=== PATIENT | male | born 1990 | race Caucasian/White ===

== ENCOUNTER 2019-06-22 22:15 | Emergency (ER) | payer MEDICAID, SELFPAY ==
[2019-06-22 22:16] VITALS: BP 123/81; PULSE 92; RESP 18; TEMP 36.7; O2SAT 99; BMI 34.4
--- NOTE | 2019-06-22 22:47 | ED.VIS.GEN ---
History of Present Illness Chief Complaint: Complaint Detail of Chief Complaint: Materia x1 week and right flank pain Informant: Patient Onset: Weeks Context: Sudden Onset Timing: Continuous, Waxes and wanes Quality: Flank pain with hematuria, urgency Location: Left Current Severity: Moderate Maximum Severity: Severe Worsened by: Nothing Relieved by: Nothing Associated Symptoms: Nausea and hematuria Narrative: Patient is a 29-year-old male with history of ureterolithiasis many years ago. He was seen approximately 6 years ago and diagnosed with orchitis. He denies fever, chills night sweats. He states he has had blood in his urine for proxy 1 week. Today he passed a clot. He is complaining of increased flank pain. Flank pain is colicky in nature. He denies dysuria. He does report urgency. He denies testicular pain. He denies vomiting or diarrhea. He denies trauma. He denies skin rash or lesions. Prior similar symptoms: Yes Recent Illness/Hospitalization: No - Past Medical History (1) Renal calculi Status: Acute (2) Orchitis Status: Acute Past Medical History - Allergies and Home Meds Allergies/Adverse Reactions: Allergies Penicillins Allergy (Verified 06/05/18 15:09) Anaphylaxis Primary Care Physician: Octavio Murillo MD [Primary Care Provider] - Prior records reviewed: Yes Surgical History: no surgical history Lives: Alone Smoking Status: Current every day smoker Alcohol: Rare Drugs: None Review of Systems General: Denies: Chills, Fever, Malaise, Subjective, Sweats, Weight loss, - ENT: Denies: Right ear pain, Rhinorrhea Cardiovascular: Denies: Chest pain, Palpitations Respiratory: Denies: Dyspnea, Cough, Dyspnea on exertion Gastrointestinal: Reports: Nausea. Denies: Abdominal pain, Vomiting, Diarrhea, Melena, Hematochezia Genitourinary: Reports: Hematuria. Denies: Dysuria, Frequency Musculoskeletal: Reports: Back pain. Denies: Myalgias, Arthralgias, Neck pain, Swelling, Extremity Pain Skin: Denies: Rash, Wounds Neurological: Denies: Headache, Weakness Hematologic: Denies: Easy bruising, Easy bleeding Allergy: Denies: Uticaria, Swelling of the mouth, Swelling of the tongue Physical Exam Vital Signs/Narrative: Vital Signs Temp Pulse Resp BP Pulse Ox 06/22/19 22:16 98.1 F 92 18 123/81 H 99 Inital Vital Signs reviewed: Yes General: Well nourished, Well developed, Acute Distress - Schrader is pacing the room. He has his hand on his left flank. Head: Normocephalic, Atraumatic Eyes: Perrl, EOMI ENT: Moist mucous membranes, No rhinorrhea Neck: Supple, Nontender, No lymphadenopathy, No JVD Cardiovascular: Regular rate, Regular rhythm, No murmurs, Normal S1, Normal S2 Respiratory: No distress, CTA bilaterally, Chest nontender Abdomen: Soft, Nontender, Nondistended, Normal bowel sounds Rectal: Deferred Back: Nontender, Normal Inspection Extremities: Nontender, No edema Skin: Normal color, No rash, No Trauma. Negative for: Cyanosis, Diaphoresis, Jaundice Neurological: Alert, Oriented x3, Cranial nerves II-XII grossly intact, Normal Strength, Normal Sensation, Normal Gait Psychological: Normal affect, Normal Mood Diagnostic/Tx/Re-eval Impressions Abdomen/Pelvis CT 06/23/19 00:04 IMPRESSION: There is a stone in the right kidney measures 15 mm without hydronephrosis. There is mild left hydronephrosis and hydroureter due to 4 mm stone in the distal end of left ureter at ureterovesical junction. Electronically Signed: Flor Evelyn, at 2:15 EDT Tel , Service support , 06/23/19 00:04 Abdomen/Pelvis without Cont [CT] Stat Laboratory Results 06/22/19 06/22/19 06/22/19 23:00 23:00 23:10 WBC 9.2 RBC 4.67 Hgb 15.1 Hct 43.3 MCV 92.7 MCH 32.3 H MCHC 34.9 RDW Std Deviation 41.3 RDW Coeff of [place] 12.1 Plt Count 167 MPV 9.8 Immature Gran % (Auto) 0.200 Neut % (Auto) 52.1 Lymph % (Auto) 35.9 [place] % (Auto) 6.4 Eos % (Auto) 4.9 Baso % (Auto) 0.5 Absolute Neuts (auto) 4.8 Absolute Lymphs (auto) 3.31 Nucleated RBC % 0 Sodium 140 Potassium 3.8 Chloride 106 Carbon Dioxide 28.0 Anion Gap 6 BUN 13 Creatinine 0.97 Estim Creat Clear Calc 107.73 Est GFR (MDRD) Af Amer 117 Est GFR (MDRD) Non-Af 97 BUN/Creatinine Ratio 13.4 Glucose 93 Calcium 8.8 Urine Color Yellow Urine Clarity Clear Urine pH 7.0 Ur Specific [place] 1.005 Urine Protein 30 H Urine Glucose (UA) Normal Urine Ketones Negative Urine Occult Blood 250 H Urine Nitrite Negative Urine Bilirubin Negative Urine Urobilinogen Normal Ur Leukocyte Esterase 25 H Urine RBC 5-10 SEEN Urine WBC 0-5 SEEN Ur Squamous Epith Cells 0 SEEN Urine Bacteria 0 SEEN Urine Mucus 0 SEEN - EKG Initial EKG Interpretation: Sinus Tachycardia - Sinus tachycardia with a ventricular rate of 121. KS interval is 118 ms. QS duration 84 ms. QT duration 300 ms. [place] is normal. The only abnormality is sinus tachycardia. Prior: Unchanged - Medical Decision Making Complaint of hematuria and pain need to evaluate for obstructing ureteral stone. Also in the differential is renal carcinoma, bleeding from renal cyst, hemorrhagic cystitis. IV was established. He received IV Toradol and Zofran for his nausea and pain. Blood work was obtained. After reviewing records and determined that he has not had a CAT scan in years. Will obtain CT to evaluate size and location. White count and differential unremarkable. There is no evidence of infection in the urine. Renal function is normal. She was informed of his results. He states he has minor pain and concern the pain is returning. He will be medicated with morphine prior to discharge. He was given a prescription for Percocet, nonsteroidal and follow-up with urology. ED Disposition - Plan for ED Patient: Disposition: Home or Assisted Living Diagnosis: Hydronephrosis concurrent with and due to calculi of kidney and ureter, Kidney stone on right side Instructions: KIDNEY STONE w/ Colic Prescriptions: Naproxen [Naprosyn] 500 mg PO BID #14 tab Transmission Status: Pending to [facility] Oxycodone HCl/Acetaminophen [Percocet 5/325] 1 tablet PO Q6H PRN PRN 5 Days #20 tablet PRN Reason: Pain Transmission Status: Sent to [facility] Referrals: Octavio Murillo MD [Primary Care Provider] - Aurelio Gonzales MD [STAFF PHYSICIAN] - 5-7 Days Additional Instructions: Your prescription was electronically transmitted to [facility].
[2019-06-22 23:07] LABS: Absolute Lymphocyte Count 3.31 X10^3/uL (0.83-4.51); Absolute Neutrophil Count 4.8 X10^3/uL (2.0-7.7); Basophil# 0.05 X10^3/uL; Basophil% 0.5 % (0-1); Eosinophil# 0.45 X10^3/uL; Eosinophils% 4.9 % (0-5); Hematocrit 43.3 % (40-54); Hemoglobin 15.1 g/dL (13.0-16.5); Lymphocyte # 3.31 X10^3/ul (4.0); Lymphocyte % 35.9 % (19-41); Mean Corp Hgb Conc 34.9 g/dL (32-36); Mean Corpuscular Hgb 32.3 pg (27.0-32.0); Mean Corpuscular Volume 92.7 fL (80-94); Mean Platelet Vol. 9.8 fl (6.2-12.0); Monocyte# 0.59 X10^3/uL; Monocyte% 6.4 % (0-10); NRBC Flagged by Analyzer 0 % (0-5); Neutrophil % 52.1 % (47-70); Platelet Count 167 K/mm3 (150-450); RBC Distribution Width CV 12.1 % (11.6-14.6); RBC Distribution Width SD 41.3 fl (35.1-43.9); Red Blood Count 4.67 M/mm3 (4.6-6.2); White Blood Count 9.2 K/mm3 (4.4-11.0)
[2019-06-22] MEDS: Ondansetron 4 MG/2 ML Vial IV (23:13)
[2019-06-22] MEDS: 0.9% Normal Saline 1,000 ML 250 ML IV (23:13)
[2019-06-22] MEDS: Ketorolac 30 MG/ML Syringe 15 MG IV (23:13)
[2019-06-22 23:16] LABS: Bacteria 0 SEEN /hpf (None Seen); Mucous, Urine 0 SEEN /hpf (<or=2+); Squamous Epithelial Cells - UA 0 SEEN /hpf (0-5)
[2019-06-22 23:18] LABS: Color, Urine Yellow (Yellow); Glucose, Dipstick Normal (Normal); Ketone-Dipstick Negative (Negative); Leukocyte Esterase-Dipstick 25 /ul (Negative); Nitrite-Dipstick Negative (Negative); Occult Blood-Urine 250 /ul (Negative); Protein-Dipstick 30 mg/dl (Negative); Specific Gravity, Urine 1.005 (1.002-1.030); Urine Bilirubin Dipstick Negative (Negative); Urine Clarity Clear (Clear); Urine Urobilinogen Normal (Normal)
[2019-06-22 23:20] LABS: Anion Gap 6 (5-15); BUN 13 mg/dL (7-18); BUN/Creat Ratio 13.4 RATIO (10-20); Calcium,Total 8.8 mg/dL (8.5-10.1); Chloride 106 mmol/L (98-107); Creatinine, Serum 0.97 mg/dL (0.70-1.30); EST Glomerular Filtration Rate 97 mL/min (>60); Est Glom Filt Rate - Afr Amer 117 mL/min (>60); Estimated Creatinine Clearance 107.73 ml/min; Glucose 93 mg/dL (74-106); Potassium 3.8 mmol/L (3.5-5.1); Sodium Level 140 mmol/L (136-145)
[2019-06-22 23:23] LABS: White Blood Cells 0-5 SEEN /hpf (0-5)
[2019-06-22 23:24] LABS: Red Blood Cells-Urine 5-10 SEEN /hpf (0-5)
--- NOTE | 2019-06-23 00:04 | CT_ITS ---
STUDY: CT ABDOMEN AND PELVIS WITHOUT CONTRAST REASON FOR EXAM: Male, 29 years old. Left flank pain RADIATION DOSAGE (If Supplied By Facility): CTDIvol = ( 16.72 ) mGy, DLP = ( 889.51 ) mGycm TECHNIQUE: Transaxial images were obtained from the dome of the diaphragm to the symphysis pubis without oral contrast, and without intravenous contrast. Sagittal and coronal images were reconstructed. Individualized dose optimization techniques were used for this CT. COMPARISON: None. FINDINGS: The visualized lung bases are unremarkable. The visualized portions of the heart are within normal limits. Normal liver. Normal gallbladder and extrahepatic biliary system. Normal spleen. Normal pancreas. Normal bilateral adrenal glands. There is a stone in the right kidney measures 15 mm without hydronephrosis. There is mild left hydronephrosis and hydroureter due to 4 mm stone in the distal end of left ureter at ureterovesical junction. Normal visualized stomach. Normal small intestine. Normal colon. The appendix is visualized and appears normal. Normal abdominal aorta. Normal inferior vena cava. Normal retroperitoneum. Normal urinary bladder. Normal abdominal wall. Normal osseous structures. CT/Abdomen/Pelvis without Cont IMPRESSION: There is a stone in the right kidney measures 15 mm without hydronephrosis. There is mild left hydronephrosis and hydroureter due to 4 mm stone in the distal end of left ureter at ureterovesical junction. Electronically Signed: Basia Rivas, at 2:15 EDT Tel , Service support ,
[2019-06-23] MEDS: morphine 8 MG/ML Syringe 6 MG IV (02:32)
[2019-06-23 02:50] VITALS: BP 124/82; PULSE 63; RESP 14; O2SAT 98
== END 2019-06-23 02:52 | disposition home or self-care (01) ==
PROVIDERS: Emergency Provider Emergency Medicine; Family Provider Family Medicine; PCP Family Medicine
DX: N13.2 Hydronephrosis with renal and ureteral calculous obstruction (principal); Z87.442 Personal history of urinary calculi; F17.200 Nicotine dependence, unspecified, uncomplicated
CPT/HCPCS: 74176; 80048; 81001; 85025; 96361; 96374; 96375; 99283; J7030; A4216; J2405

== ENCOUNTER 2019-11-14 08:46 | Emergency (ER) | payer SELFPAY ==
[2019-11-14 08:48] VITALS: BP 130/85; PULSE 68; RESP 17; TEMP 36.8; O2SAT 98; BMI 34.6
--- NOTE | 2019-11-14 08:59 | ED.DCSUM_ITS ---
History of Present Illness Chief Complaint: Nausea/Vomiting Informant: Patient Onset: Today Narrative: Patient states that for the past 4 to 5 days he has had diarrhea. He states there is a couple days were gotten better but has returned. He describes it as yellow and green. He also states he has been having nosebleeds on the left. 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 He notes that he has pain in the right ear decreased hearing and feels off balance with walking. He reports that during the night he had 5-6 symptoms of vomiting which she describes as dark blood. He notes abdominal cramping. No history of gastric ulcers. No history of GERD. Past Medical History - Allergies and Home Meds Allergies/Adverse Reactions: Allergies Penicillins Allergy (Verified 11/14/19 08:47) Anaphylaxis Primary Care Physician: Octavio Murillo MD [Primary Care Provider] - Surgical History: no surgical history Smoking Status: Current every day smoker Review of Systems General: Denies: Chills, Fever, Sweats Eyes: Denies: Visual changes - bilaterally, Diplopia ENT: Reports: Right ear pain, - - Left epistaxis. Denies: Rhinorrhea, Sore throat Cardiovascular: Denies: Chest pain, Palpitations Respiratory: Reports: Cough. Denies: Dyspnea, Dyspnea on exertion Gastrointestinal: Reports: Abdominal pain, Nausea, Vomiting, Diarrhea. Denies: Melena, Hematochezia Genitourinary: Denies: Dysuria, Hematuria, Frequency Musculoskeletal: Denies: Back pain, Extremity Pain Skin: Denies: Rash, Wounds Neurological: Denies: Headache, Weakness, Numbness Physical Exam Vital Signs/Narrative: Vital Signs Temp Pulse Resp BP Pulse Ox 11/14/19 08:48 98.3 F 68 17 130/85 H 98 Inital Vital Signs reviewed: Yes General: Well nourished, Well developed, No Acute Distress Head: Normocephalic, Atraumatic Eyes: Perrl, EOMI ENT: Moist mucous membranes, No rhinorrhea, - - Left anterior nasal plexus demonstrates significant dry skin recent bleeding. Right tympanic membrane shows fluid behind it loss of visualization of the bones and erythema. Neck: Supple, Nontender Cardiovascular: Regular rate, Regular rhythm, No murmurs Respiratory: No distress, CTA bilaterally, Chest nontender Abdomen: Soft, Nontender, Nondistended, Normal bowel sounds Back: Nontender, Normal Inspection Extremities: Nontender, No edema Skin: Normal color, No rash Neurological: Alert, Oriented x3, Cranial nerves II-XII grossly intact, Normal Strength, Normal Sensation Psychological: Normal affect, Normal Mood Diagnostic/Tx/Re-eval - Medical Decision Making White count was 12 hemoglobin is 15. Liver enzymes and lipase normal. I think a reasonable approach to this patient is to (1) use amoxicillin for the otitis media. (2) topical ointment for hydration and healing of the nose. And(3) twice daily Pepcid for presumed gastritis/gastric ulcer. However I think it is more likely the patient had a nosebleed and swallowed the blood during his sleep resulting in vomiting. Patient is comfortable with this plan will return if worsening or concerns. He understands signs and symptoms that would require him to come back to the ED. ED Disposition - Plan for ED Patient: Disposition: Home or Assisted Living Diagnosis: Otitis media, Anterior epistaxis, Gastroenteritis Instructions: OTITIS MEDIA, Abx Tx (Adult), EPISTAXIS (Adult) Prescriptions: Cefdinir 300 mg PO BID #20 cap Transmission Status: Pending to [facility] Famotidine [Pepcid] 20 mg PO BID #28 tab Transmission Status: Pending to [facility] Referrals: Octavio Murillo MD [Primary Care Provider] - 1-2 Weeks Additional Instructions: Use Vaseline or topical antibiotic such as Neosporin on the nose hydrate/heal the nose. Humidify the air in the room you sleep in
[2019-11-14 09:32] LABS: Absolute Lymphocyte Count 1.96 X10^3/uL (0.83-4.51); Absolute Neutrophil Count 9.9 X10^3/uL (2.0-7.7); Basophil# 0.05 X10^3/uL; Basophil% 0.4 % (0-1); Eosinophil# 0.19 X10^3/uL; Eosinophils% 1.5 % (0-5); Hematocrit 44.2 % (40-54); Hemoglobin 15.7 g/dL (13.0-16.5); Lymphocyte # 1.96 X10^3/ul (4.0); Lymphocyte % 15.5 % (19-41); Mean Corp Hgb Conc 35.5 g/dL (32-36); Mean Corpuscular Hgb 33.1 pg (27.0-32.0); Mean Corpuscular Volume 93.2 fL (80-94); Mean Platelet Vol. 10.4 fl (6.2-12.0); Monocyte# 0.55 X10^3/uL; Monocyte% 4.4 % (0-10); NRBC Flagged by Analyzer 0 % (0-5); Neutrophil # 9.85 X10^3/uL (2.7-7.7); Neutrophil % 77.9 % (47-70); Platelet Count 179 K/mm3 (150-450); RBC Distribution Width CV 12.9 % (11.6-14.6); RBC Distribution Width SD 44.3 fl (35.1-43.9); Red Blood Count 4.74 M/mm3 (4.6-6.2); White Blood Count 12.6 K/mm3 (4.4-11.0)
[2019-11-14] MEDS: 0.9% Normal Saline 1,000 ML 1000 ML IV (09:39)
[2019-11-14 10:24] LABS: ALB/GLOB Ratio 1.2 RATIO (0.9-2.4); AST(SGOT) 16 U/L (15-37); Alanine Aminotransfer ALT/SGPT 16 U/L (16-61); Albumin, Serum 3.6 g/dL (3.2-5.0); Alkaline Phosphatase 86 U/L (45-117); Anion Gap 5 (5-15); BUN 9 mg/dL (7-18); BUN/Creat Ratio 11.9 RATIO (10-20); Chloride 113 mmol/L (98-107); Creatinine, Serum 0.76 mg/dL (0.70-1.30); EST Glomerular Filtration Rate 128 mL/min (>60); Est Glom Filt Rate - Afr Amer 154 mL/min (>60); Globulin 3.1 g/dL (2.2-4.2); Glucose 93 mg/dL (74-106); Lipase 111 U/L (73-393); Potassium 3.6 mmol/L (3.5-5.1); Protein, Total 6.7 g/dL (6.4-8.2); Sodium Level 142 mmol/L (136-145)
[2019-11-14 11:09] VITALS: BP 133/94; PULSE 70; RESP 18; O2SAT 99
== END 2019-11-14 11:09 | disposition home or self-care (01) ==
PROVIDERS: Emergency Provider Emergency Medicine; PCP Family Medicine
DX: K52.9 Noninfective gastroenteritis and colitis, unspecified (principal); H66.91 Otitis media, unspecified, right ear; R04.0 Epistaxis; Z88.0 Allergy status to penicillin; F17.200 Nicotine dependence, unspecified, uncomplicated
CPT/HCPCS: 36415; 80053; 83690; 85025; 99285; A4216

== ENCOUNTER 2021-04-10 12:08 | Emergency (ER) | payer SELFPAY ==
[2021-04-10 12:09] VITALS: BP 120/81; PULSE 77; RESP 16; TEMP 36.6; O2SAT 98; BMI 31.6
--- NOTE | 2021-04-10 12:21 | CT_ITS ---
STUDY: CT ABDOMEN AND PELVIS WITHOUT CONTRAST REASON FOR EXAM: Male, 31 years old. Flank pain and fever RADIATION DOSAGE (If Supplied By Facility): CTDIvol = ( 20.71 ) mGy, DLP = ( 1061.79 ) mGycm TECHNIQUE: Transaxial images were obtained from the dome of the diaphragm to the symphysis pubis without oral contrast, and without intravenous contrast. Sagittal and coronal images were reconstructed. Individualized dose optimization techniques were used for this CT. COMPARISON: 2018 FINDINGS: The visualized lung bases are unremarkable. The visualized portions of the heart are within normal limits. Normal liver. Normal gallbladder and extrahepatic biliary system. Normal spleen. Normal pancreas. Normal bilateral adrenal glands. No obstructive uropathy, there is a stable 1.65 cm nonobstructing stone in the mid right kidney Normal visualized stomach. Multiple nondistended fluid-filled small bowel loops are noted consistent with ileus. Normal colon. The appendix is visualized and appears normal. Appendix best seen on coronal recon images 55 through 60 Normal abdominal aorta. Normal inferior vena cava. Scattered subcentimeter mesenteric and retroperitoneal lymph nodes Normal urinary bladder. Normal abdominal wall. Normal osseous structures. CT/Abdomen/Pelvis without Cont IMPRESSION: No obstructive uropathy, stable 1.65 cm nonobstructing right renal stone Small bowel ileus No free intraperitoneal fluid, air, or suspicious adenopathy, there are scattered subcentimeter mesenteric and retroperitoneal lymph nodes suggesting mesenteric lymphadenitis Normal appendix visualized Electronically Signed: Pradip Burns MD at 13:11 EDT , Service support ,
--- NOTE | 2021-04-10 12:21 | EX.ED.DYSGE1 ---
HPI History of Present Illness Chief Complaint: Flank Pain Informant: patient Narrative Narrative: 31-year-old male presents to the emergency room with right flank pain. He has a history of kidney stones. Symptoms began yesterday waxed and waned but got significantly worse today. He notes some nausea and vomiting. He states this feels like a kidney stone. He is seeing Dr. Gonzales in the past. [facility] Medical History Asthma Back pain Diarrhea Difficulty balancing Limb weakness Migraines SOB (shortness of breath) Home Medications ondansetron 4 mg PO Q6H PRN PRN #15 tab 04/10/21 [Rx Last Taken Unknown] Allergy/AdvReac Type Severity Reaction Status Date / Time Penicillins Allergy Anaphylaxis Verified 04/10/21 12:10 Family History (Updated 06/05/18 @ 15:12 by Zoie Canela) Other CVA (cerebral vascular accident) Social History Smoking Status: Current every day smoker tobacco type: cigarettes alcohol intake: never ROS ROS ED Constitutional Constitutional ED: Denies chills or weight loss Eyes Eyes: Denies change in vision or diplopia ENT ENT ED: Denies ear pain, rhinorrhea or sore throat Cardiovascular Cardiovascular: Denies chest pain, orthopnea, palpitations or racing heartbeat Respiratory/Chest Respiratory/Chest: Denies cough, dyspnea or orthopnea Gastrointestinal Gastrointestinal: Reports abdominal pain, diarrhea, nausea and vomiting Genitourinary Genitourinary ED: Reports urinary frequency and other Details: Right flank pain ; Denies dysuria or hematuria Musculoskeletal Musculoskeletal: Denies arthralgias or myalgias Integumentary Denies abscess or rash Neurologic Neurologic: Denies headache(s) or weakness Psychiatric Psychiatric: Denies anxiety, depression, suicidal ideation or suicidal thoughts Endocrine Endocrinology: Denies polydipsia, polyphagia or polyuria Allergic/Immunologic Allergic/Immunologic ED: Denies mouth swelling, tongue swelling or urticaria EXAM Physical Exam Const Vital Signs: 04/10/21 12:09 Temperature 98 F Temperature Source Temporal Pulse Rate 77 Respiratory Rate 16 Blood Pressure 120/81 H Blood Pressure Mean 94 Pulse Ox 98 Oxygen Delivery Method Room Air Positive well nourished and well developed General Appearance ED: well developed HEENT Reports normocephalic, head/scalp atraumatic and moist mucous membranes Eyes PERRL and EOMs intact bilaterally Neck no lymphadenopathy, supple and no JVD Resp normal respiratory effort and clear to auscultation bilaterally Cardio regular rate, regular rhythm and no murmurs GI normal to inspection, nondistended, normoactive bowel sounds and non-tender Palpation: soft Back/Spine no CVA tenderness and normal ROM Extremity normal to inspection General Extremety ED: Negative for edema General Extremity: Negative for edema Neuro oriented x3 and CN's II-XII intact bilaterally Sensorium / Orientation: alert Motor Exam: strength 5/5 throughout Psych mental status grossly normal Mood & Affect: Negative for depressed or tearful Skin no rashes or lesions noted and no wounds MDM MDM MDM Narrative Medical decision making narrative: Patient received IV fluids Toradol morphine and Zofran. Basic blood work was normal. Urinalysis normal. CT of the abdomen pelvis demonstrates no ureteral stone. There is a large stone in the right kidney. He does have some dilated small bowel with air-fluid levels consistent more with an ileus. This would also explain his diarrhea and vomiting. Patient will have nausea medicine written for him. I recommend follow-up with primary care return if worsening Lab Data Attestation: I reviewed the patient's lab results. Labs: Laboratory Results - last 24 hr 04/10/21 04/10/21 04/10/21 12:30 12:30 12:40 WBC 8.1 RBC 4.75 Hgb 15.8 Hct 45.0 MCV 94.7 H MCH 33.3 H MCHC 35.1 RDW Std Deviation 43.3 RDW Coeff of [place] 12.3 Plt Count 183 MPV 10.5 Immature Gran % (Auto) 0.400 Neut % (Auto) 63.2 Lymph % (Auto) 26.2 [place] % (Auto) 6.9 Eos % (Auto) 2.6 Baso % (Auto) 0.7 Absolute Neuts (auto) 5.1 Absolute Lymphs (auto) 2.12 Nucleated RBC % 0 Sodium 139 Potassium 4.0 Chloride 111 H Carbon Dioxide 25.0 Anion Gap 3 L BUN 10 Creatinine 0.79 Estim Creat Clear Calc 129.87 Est GFR (MDRD) Af Amer 146 Est GFR (MDRD) Non-Af 121 BUN/Creatinine Ratio 12.6 Glucose 91 Calcium 8.4 L Urine Color Yellow Urine Clarity Sl. Cloudy Urine pH 7.0 Ur Specific [place] 1.010 Urine Protein 15 H Urine Glucose (UA) Normal Urine Ketones Negative Urine Occult Blood 10 H Urine Nitrite Negative Urine Bilirubin Negative Urine Urobilinogen 1 H Ur Leukocyte Esterase 25 H Urine RBC 0 SEEN Urine WBC 0 SEEN Ur Squamous Epith Cells 0 SEEN Urine Bacteria 0 SEEN Urine Mucus 0 SEEN Radiography Diagnostic Testing: Radiology Impression Abdomen/Pelvis CT 04/10/21 12:21 IMPRESSION: No obstructive uropathy, stable 1.65 cm nonobstructing right renal stone Small bowel ileus No free intraperitoneal fluid, air, or suspicious adenopathy, there are scattered subcentimeter mesenteric and retroperitoneal lymph nodes suggesting mesenteric lymphadenitis Normal appendix visualized Electronically Signed: Pradip Burns MD at 13:11 EDT , Service support , Discharge Plan Triage Chief Complaint: Flank Pain ED Provider: Bob Da Silva Dx/Rx/DC Orders Clinical Impression: Abdominal pain, acute, Ileus Instructions: Ileus Prescriptions: New ondansetron [ondansetron] 4 MG tablet 4 mg PO Q6H PRN PRN (Reason: Nausea) Qty: 15 RF: 0 Primary Care Provider: Octavio Murillo Referrals: Octavio Murillo MD [Primary Care Provider] - 3-5 Days if not improving Disposition Disposition: Home, Self Care
[2021-04-10] MEDS: Ketorolac 30 MG/ML Syringe IV (12:35)
[2021-04-10] MEDS: Ondansetron 4 MG/2 ML Vial IV (12:35)
[2021-04-10] MEDS: Morphine 4 MG/ML Syringe IV (12:35)
[2021-04-10] MEDS: 0.9% Normal Saline 1,000 ML 200 ML IV (12:35)
[2021-04-10 12:36] LABS: Absolute Lymphocyte Count 2.12 X10^3/uL (0.83-4.51); Absolute Neutrophil Count 5.1 X10^3/uL (2.0-7.7); Basophil# 0.06 X10^3/uL; Basophil% 0.7 % (0-1); Eosinophil# 0.21 X10^3/uL; Eosinophils% 2.6 % (0-5); Hemoglobin 15.8 g/dL (13.0-16.5); Lymphocyte # 2.12 X10^3/ul (0.83-4.51); Lymphocyte % 26.2 % (19-41); Mean Corp Hgb Conc 35.1 g/dL (32-36); Mean Corpuscular Hgb 33.3 pg (27.0-32.0); Mean Corpuscular Volume 94.7 fL (80-94); Mean Platelet Vol. 10.5 fl (6.2-12.0); Monocyte# 0.56 X10^3/uL; Monocyte% 6.9 % (0-10); NRBC Flagged by Analyzer 0 % (0-5); Neutrophil # 5.11 X10^3/uL (2.7-7.7); Neutrophil % 63.2 % (47-70); Platelet Count 183 K/mm3 (150-450); RBC Distribution Width CV 12.3 % (11.6-14.6); RBC Distribution Width SD 43.3 fl (35.1-43.9); Red Blood Count 4.75 M/mm3 (4.6-6.2); White Blood Count 8.1 K/mm3 (4.4-11.0)
[2021-04-10 12:49] LABS: Anion Gap 3 (5-15); BUN 10 mg/dL (7-18); BUN/Creat Ratio 12.6 RATIO (10-20); Calcium,Total 8.4 mg/dL (8.5-10.1); Chloride 111 mmol/L (98-107); Creatinine, Serum 0.79 mg/dL (0.70-1.30); EST Glomerular Filtration Rate 121 mL/min (>60); Est Glom Filt Rate - Afr Amer 146 mL/min (>60); Estimated Creatinine Clearance 129.87 ml/min; Glucose 91 mg/dL (74-106); Sodium Level 139 mmol/L (136-145)
[2021-04-10 12:50] LABS: Bacteria 0 SEEN /hpf (None Seen); Mucous, Urine 0 SEEN /hpf (<or=2+); Red Blood Cells-Urine 0 SEEN /hpf (0-5); Squamous Epithelial Cells - UA 0 SEEN /hpf (0-5); White Blood Cells 0 SEEN /hpf (0-5)
[2021-04-10 12:52] LABS: Color, Urine Yellow (Yellow); Glucose, Dipstick Normal (Normal); Ketone-Dipstick Negative (Negative); Leukocyte Esterase-Dipstick 25 /ul (Negative); Nitrite-Dipstick Negative (Negative); Occult Blood-Urine 10 /ul (Negative); Protein-Dipstick 15 mg/dl (Negative); Urine Bilirubin Dipstick Negative (Negative); Urine Clarity Sl. Cloudy (Clear); Urine Urobilinogen 1 mg/dl (Normal)
[2021-04-10 14:04] VITALS: BP 131/76; PULSE 81; RESP 16; O2SAT 98
== END 2021-04-10 14:07 | disposition home or self-care (01) ==
PROVIDERS: Emergency Provider Emergency Medicine; PCP Family Medicine
DX: K56.7 Ileus, unspecified (principal); N20.0 Calculus of kidney; J45.909 Unspecified asthma, uncomplicated; F17.210 Nicotine dependence, cigarettes, uncomplicated; Z87.442 Personal history of urinary calculi
CPT/HCPCS: 74176; 80048; 81001; 85025; 96361; 96374; 96375; 99283; J7030; A4216; J2405

== ENCOUNTER 2022-08-18 04:23 | Emergency (ER) | payer SELFPAY ==
[2022-08-18 04:24] VITALS: BP 142/76; PULSE 98; RESP 16; TEMP 37.5; O2SAT 100; BMI 33.4
--- NOTE | 2022-08-18 04:44 | RAD_ITS ---
EXAM: XR CHEST, 2 VIEWS CLINICAL INDICATION: cough TECHNIQUE: Frontal and lateral views of the chest. This report was created using [employer] report generation technology. COMPARISON: None. FINDINGS: LUNGS AND PLEURAL SPACES: Unremarkable. No consolidation or edema. No pneumothorax. No effusion. HEART: Unremarkable. Cardiac silhouette not enlarged. MEDIASTINUM: Central airways and mediastinal contour are unremarkable. BONES/JOINTS: Unremarkable. SOFT TISSUES: Unremarkable. RAD/Chest PA and Lateral IMPRESSION: No radiographic evidence of acute cardiopulmonary disease. Electronically Signed: Jarred Jang MD at 5:56 EST ,
--- NOTE | 2022-08-18 04:50 | EDS_ITS ---
HPI History of Present Illness Chief Complaint: Fever Narrative Narrative: Patient is a 32-year-old male who states he has been multiple sick children in his home. He states that there is been influenza and strep present. He states in the last day he developed a fever up to 102 at home with some congestion drainage and cough. He also reports that he has had muscle aches sore throat and some right-sided back pain. He states he is unsure if he has strep or the flu or some other type of illness and secondary to his symptoms and persistent fever comes in for evaluation [facility] Medical History Asthma Back pain Diarrhea Difficulty balancing Limb weakness Migraines SOB (shortness of breath) Home Medications albuterol sulfate 90 mcg/actuation aerosol inhaler (Ventolin HFA) 1 - 2 puff inhalation Q4H PRN PRN Wheezing #1 device 08/18/22 [Rx Last Taken Unknown] Allergy/AdvReac Type Severity Reaction Status Date / Time Penicillins Allergy Anaphylaxis Verified 08/18/22 04:28 Family History (Updated 06/05/18 @ 15:12 by Zoie Canela) Other CVA (cerebral vascular accident) Social History Smoking Status: Current every day smoker tobacco type: cigarettes alcohol intake: never ROS ROS ED Constitutional Constitutional ED: Reports fever(s); Denies chills ENT ENT ED: Reports ear pain, rhinorrhea and sore throat Cardiovascular Cardiovascular: Denies chest pain Respiratory/Chest Respiratory/Chest: Reports cough; Denies dyspnea Gastrointestinal Gastrointestinal: Denies abdominal pain, diarrhea, nausea or vomiting Genitourinary Genitourinary ED: Denies dysuria Musculoskeletal Musculoskeletal: Reports myalgias Integumentary Denies rash Neurologic Neurologic: Reports headache(s) Hematologic/Lymphatic Hematologic/Lymphatic: Denies easy bleeding or easy bruising EXAM Physical Exam Const Vital Signs: 08/18/22 04:24 08/18/22 04:27 Temperature 99.5 F H Temperature Source Oral Pulse Rate 98 Respiratory Rate 16 Respiratory Effort Normal Non-Labored Respiratory Pattern Normal Blood Pressure 142/76 H Blood Pressure Mean 98 Pulse Ox 100 Oxygen Delivery Method Room Air Positive well nourished and well developed General Appearance ED: well developed HEENT Reports moist mucous membranes HEENT Narrative: Bilateral TMs are retracted without secondary changes to suggest infection. Nasal mucosa is hyperemic and boggy with enlarged inferior nasal turbinates. There is cobblestoning the posterior pharynx consistent with sinus drainage without airway edema or compromise. Eyes PERRL and EOMs intact bilaterally Neck supple Neck Narrative: No meningeal signs noted Positive anterior cervical lymphadenopathy present Resp normal respiratory effort Resp Narrative: There is faint rhonchi noted in bilateral bases without nasal flaring retractions tachypnea or accessory muscle use Cardio regular rate and regular rhythm GI normal to inspection, nondistended, normoactive bowel sounds, non-tender, non- distended and no masses Auscultation: normoactive bowel sounds Palpation: soft Back/Spine no CVA tenderness Extremity normal to inspection Neuro oriented x3 and CN's II-XII intact bilaterally Sensorium / Orientation: alert Psych mental status grossly normal Skin no rashes or lesions noted MDM MDM MDM Narrative Medical decision making narrative: Patient presented to the ER with low-grade temperature but did take Tylenol prior to arrival and reported fever up to 102 at home. Otherwise he is not hypoxic or tachypneic or in respiratory distress. His constellation of symptoms is consistent with viral syndrome and with influenza the house there is a strong likelihood he has this so a rapid COVID and influenza swab were ordered. With the right sided rib pain on exam I did elect to perform a chest x-ray as well. Chest x-ray did not reveal any acute findings and viral swab was positive for influenza A. At this time there is reason for the patient's symptoms and fever but he is not in respiratory distress or requiring supplemental oxygen and therefore he can be discharged with symptomatic medications. Radiography Diagnostic Testin view chest x-ray as interpreted by the emergency medicine physician reveals no acute infiltrate pneumothorax or pleural effusion Discharge Plan Triage Chief Complaint: Fever ED Provider: Kai Reilly Dx/Rx/DC Orders Clinical Impression: Influenza A, Pyrexia Instructions: ED Fever Control (Adult), ED Influenza (Adult) Prescriptions: New albuterol sulfate [Ventolin HFA] 90 mcg/actuation HFA aerosol inhaler 1 - 2 puff inhalation Q4H PRN PRN (Reason: Wheezing) Qty: 1 2RF Stand Alone Forms: ED Work / School Excuse Primary Care Provider: Octavio Murillo Referrals: Octavio Murillo MD [Primary Care Provider] - Activity Restrictions/Additional Instructions: You have influenza A. This will last 5 to 10 days with the average being 7. It is very common to have a fever every day or sick. Please take Tylenol and or Motrin for fever control. Limit your exposure to other people as this is also highly contagious. If you have any further concerns or worsening of symptoms please return to the ER for repeat evaluation Disposition Disposition: Home, Self Care
[2022-08-18 05:29] VITALS: BP 138/79; PULSE 81; RESP 16; TEMP 36.8; O2SAT 99
== END 2022-08-18 05:30 | disposition home or self-care (01) ==
PROVIDERS: Emergency Provider Emergency Medicine; PCP Family Medicine; Visit Provider Emergency Medicine
DX: J10.1 Influenza due to other identified influenza virus with other respiratory manifestations (principal); F17.210 Nicotine dependence, cigarettes, uncomplicated
CPT/HCPCS: 71046; 87428; 99282

== ENCOUNTER 2024-05-12 14:06 | Emergency (ER) | payer SELFPAY ==
[2024-05-12 14:06] VITALS: BP 139/89; PULSE 55; RESP 16; TEMP 36.3; O2SAT 99; BMI 32.6
--- NOTE | 2024-05-12 14:30 | RAD_ITS ---
INDICATION: foreign body EXAMINATION/TECHNIQUE: X-RAY - LEFT HAND XR Fingers Min 2 Views 3 VIEWS COMPARISON: No relevant prior comparison study available FINDINGS: SOFT TISSUES: No soft tissue swelling or gas. Metallic foreign body traversing the proximal phalanx of the thumb. BONES/JOINTS: No acute fracture or subluxation.. Normal alignment. Preservation of the joint space.. No sclerotic or destructive changes observed. RAD/Finger(s) Min 2 Views IMPRESSION: Metallic foreign body as described above. Electronically Signed: Damon Hutchins MD at 15:13 EDT ,
[2024-05-12] MEDS: Diphth,Pertuss(Acell),Tet Vac 0.5 ML Vial IM (14:43)
[2024-05-12] MEDS: Lidocaine 1% (20 ml mdv) 20 ML Vial 5 ML INFILT (14:43)
--- NOTE | 2024-05-12 14:50 | RAD_ITS ---
INDICATION: foreign body EXAMINATION/TECHNIQUE: X-RAY - LEFT HAND XR Fingers Min 2 Views 3 VIEWS COMPARISON: Previous of the same date done earlier. FINDINGS: SOFT TISSUES: No soft tissue swelling or gas. Previously noted foreign body has been removed. BONES/JOINTS: No acute fracture or subluxation.. Normal alignment. Preservation of the joint space.. No sclerotic or destructive changes observed. RAD/Finger(s) Min 2 Views IMPRESSION: Interval removal of foreign body. Electronically Signed: Damon Hutchins MD at 15:15 EDT ,
--- NOTE | 2024-05-12 14:51 | EX.ED.DYSGE1 ---
HPI History of Present Illness Chief Complaint: Foreign Body Informant: patient and spouse/S.O. Narrative Narrative: 34-year-old male presenting to the emergency room with foreign body in the left thumb. Patient was using a tool to clean the drain of his sink when he impaled his left thumb. Formed tool that is still in the thumb. Unknown last tetanus. He denies any paresthesias or loss of function distally. [facility] Medical History Back pain Limb weakness Difficulty balancing Asthma Diarrhea Migraines SOB (shortness of breath) Home Medications ?Medication ?Instructions ?Recorded ?Last Taken ?Type cephalexin 500 mg capsule 500 mg PO Q6 #20 CAPSULES 05/12/24 Unknown Rx Allergy/AdvReac Type Severity Reaction Status Date / Time Penicillins Allergy Anaphylaxis Verified 05/12/24 14:06 Family History Other CVA (cerebral vascular accident) Social History Smoking Status: Current every day smoker tobacco type: cigarettes alcohol intake: never ROS ROS ED Constitutional Constitutional ED: Denies chills or weight loss Eyes Eyes: Denies change in vision or diplopia ENT ENT ED: Denies ear pain, rhinorrhea or sore throat Cardiovascular Cardiovascular: Denies chest pain, orthopnea, palpitations or racing heartbeat Respiratory/Chest Respiratory/Chest: Denies cough, dyspnea or orthopnea Gastrointestinal Gastrointestinal: Denies abdominal pain, diarrhea, nausea or vomiting Genitourinary Genitourinary ED: Denies dysuria, hematuria or urinary frequency Musculoskeletal Musculoskeletal: Reports other Details: See history of present illness ; Denies arthralgias or myalgias Integumentary Denies abscess or rash Neurologic Neurologic: Denies headache(s), paresthesias or weakness Psychiatric Psychiatric: Denies anxiety, depression, suicidal ideation or suicidal thoughts Endocrine Endocrinology: Denies polydipsia, polyphagia or polyuria Allergic/Immunologic Allergic/Immunologic ED: Denies mouth swelling, tongue swelling or urticaria EXAM Physical Exam Const Vital Signs: 05/12/24 14:06 05/12/24 14:12 05/12/24 15:08 Temperature 97.4 F L 97.8 F Temperature Source Temporal Pulse Rate 55 L 65 Respiratory Rate 16 18 Respiratory Effort Normal Non-Labored Respiratory Pattern Normal Blood Pressure 139/89 H 131/77 H Blood Pressure Mean 105 95 Pulse Ox 99 100 Oxygen Delivery Method Room Air Positive well nourished and well developed General Appearance ED: well developed HEENT Reports normocephalic, head/scalp atraumatic and moist mucous membranes Eyes PERRL and EOMs intact bilaterally Neck no lymphadenopathy, supple and no JVD Resp normal respiratory effort and clear to auscultation bilaterally Cardio regular rate, regular rhythm and no murmurs GI normal to inspection, nondistended, normoactive bowel sounds and non-tender Palpation: soft Back/Spine no CVA tenderness and normal ROM Extremity Extremity Narrative: There is metallic foreign body entering the dorsum of the left thumb at the PIP joint. It appears to track laterally. Neurovascular the patient appears intact. No decree sensation. No obvious deformity. General Extremety ED: Negative for edema General Extremity: Negative for edema Neuro oriented x3 and CN's II-XII intact bilaterally Sensorium / Orientation: alert Motor Exam: strength 5/5 throughout Psych mental status grossly normal Mood & Affect: Negative for depressed or tearful Skin no rashes or lesions noted and no wounds MDM MDM MDM Narrative Medical decision making narrative: Differential diagnosis includes fracture bone chip neurovascular injury ligamentous injury tendinous injury. My independent interpretation of the plain films of the left thumb is foreign body without obvious fracture. 1% lidocaine was used to anesthetize the skin surrounding the impalement site. Using gentle traction I was able to easily remove the foreign body. Minimal bleeding was noted. Patient maintains tendon function. No distal thumb evidence of hypoperfusion. Tetanus was updated and patient will receive a dose of Keflex. I will prescribe Keflex over the next several days would recommend local wound care. Wound will be dressed. My independent interpretation of the plain films postextraction is no obvious fracture no obvious retained foreign body. History & Record Review Discussion w/independent historian: Patient Radiography Diagnostic Testing: Clinical Impression(s) from Imaging Studies Finger X-Ray 05/12/24 14:30 IMPRESSION: Metallic foreign body as described above. Electronically Signed: Damon Hutchins MD at 15:13 EDT , Finger X-Ray 05/12/24 14:50 IMPRESSION: Interval removal of foreign body. Electronically Signed: Damon Hutchins MD at 15:15 EDT , Discharge Plan Triage Chief Complaint: Foreign Body ED Provider: Bob Da Silva Dx/Rx/DC Orders Clinical Impression: Foreign body of left thumb Instructions: ED Foreign Body, Soft Tissue (Removed) Prescriptions: New cephalexin 500 mg capsule 500 mg PO Q6 Qty: 20 0RF Primary Care Provider: Octavio Murillo Referrals: Octavio Murillo MD [Primary Care Provider] - As Needed Activity Restrictions/Additional Instructions: I would recommend local wound care with soap and water. Antibiotic ointment once a day. Keep the wound cleansed and dressed. Take the entire course of antibiotics. If any concerns for infection or loss of functionality or concerns for healing please return to emergency. Print Language: Amharic Disposition Disposition: Home, Self Care Discharge Date/Time: 05/12/24 15:10
[2024-05-12] MEDS: Cephalexin 250 MG Capsule 500 MG PO (15:03)
[2024-05-12 15:08] VITALS: BP 131/77; PULSE 65; RESP 18; TEMP 36.6; O2SAT 100
== END 2024-05-12 15:10 | disposition home or self-care (01) ==
LOC: ED 15:09
PROVIDERS: Emergency Provider Emergency Medicine; PCP Family Medicine; Visit Provider Emergency Medicine
DX: S61.042A Puncture wound with foreign body of left thumb without damage to nail, initial encounter (principal); W45.8XXA Other foreign body or object entering through skin, initial encounter; J45.909 Unspecified asthma, uncomplicated; F17.210 Nicotine dependence, cigarettes, uncomplicated; Z23 Encounter for immunization; Z88.0 Allergy status to penicillin
CPT/HCPCS: 73140; 90471; 90715; 99284